=== PATIENT | female | born 1985 | race African-American/Black ===

== ENCOUNTER 2017-03-05 02:47 | Emergency (ER) | payer MEDICAID ==
[~2017-03-05] VITALS: Ht 162.6 cm; Wt 85.3 kg
[2017-03-05] MEDS ORDERED: ACETAMINOPHEN 325 MG TAB PO ONE (05:00)
[2017-03-05 05:40] LABS: Basophils # (auto) 0 uL; Basophils % (auto) 0.3 % (0.0-2.0); DEFINITIVE VIEW TRANSMISSION; Eosinophils # (auto) 0 uL; Eosinophils % (auto) 0.3 % (0.0-7.0); Hematocrit 34.5 % (36.0-46.0); Hemoglobin 11.3 g/dL (12.2-16.2); Lymphocytes # (auto) 1.2 uL; Lymphocytes % (auto) 15.5 % (10.0-50.0); Mean Corpuscular Hemoglobin 26.9 pg (28.0-32.0); Mean Corpuscular Hgb Conc. 32.6 g/dL (32.0-36.0); Mean Corpuscular Volume 82.5 fL (80.0-100.0); Mean Platelet Volume 8.4 fL (7.4-10.4); Monocytes # (auto) 0.4 uL; Monocytes % (auto) 4.6 % (0.0-12.0); Neutrophils # (auto) 6.2 uL; Neutrophils % (auto) 79.3 % (37.0-80.0); Platelet Count (auto) 208 10^3/uL (140-450); Red Cell Distribution Width 13.8 % (11.6-16.0); White Blood Cell 7.8 10^3/uL (4.4-10.8)
[2017-03-05 06:00] LABS: Albumin 3.6 g/dL (3.4-5.0); BUN/Creatinine Ratio 13.4; Calcium 8.8 mg/dL (8.5-10.1); Potassium 3.8 mmol/L (3.5-5.1)
[2017-03-05 06:03] LABS: Bilirubin, Total 0.4 mg/dL (0.2-1.0); Total Protein 7.7 g/dL (6.4-8.2)
[2017-03-05 06:12] LABS: INR 0.91 (0.9-1.15); Partial Thromboplastin Time 27.7 sec (22.64-33.71); Prothrombin Time 9.8 sec (9.37-12.3)
[2017-03-05 08:43] LABS: Urine Bilirubin Negative (Negative); Urine Blood Negative /uL (Negative); Urine Color Yellow (Yellow); Urine Glucose Normal (Normal); Urine Mucus FEW (None Seen); Urine Nitrite Negative (Negative); Urine RBC 1 /hpf (0 - 4); Urine Squamous Epithelial Cell FEW /hpf (<5); Urine Urobilinogen Normal (Negative)
[2017-03-05 08:44] LABS: Urine Ketone 3+ (Negative)
[2017-03-05 09:14] VITALS: BP 115/72
== END 2017-03-05 09:49 | disposition home or self-care (01) ==
LOC: ER 02:47
DX: O26.892 Other specified pregnancy related conditions, second trimester (principal); M77.51 Other enthesopathy of right foot and ankle; Z3A.16 16 weeks gestation of pregnancy
CPT/HCPCS: 36415; 80053; 81001; 85025; 85610; 85730; 93971